=== PATIENT | female | born 1970 | race African-American/Black ===

== ENCOUNTER 2017-07-22 15:14 | Outpatient (CLI) | payer OTHER | END 2017-07-22 15:15 | disposition home or self-care (01) | LOC: BICMAMMO 15:14 | PROVIDERS: ATTEND Physician Assistant | DX: Z12.31 Encounter for screening mammogram for malignant neoplasm of breast (principal) | CPT/HCPCS: 77063; 77067 ==

== ENCOUNTER 2018-04-03 07:25 | Emergency (ER) | payer OTHER ==
[2018-04-03] MEDS ORDERED: HYDROcodone/Acetaminophen 5/325 mg Tablet ONE (07:36)
== END 2018-04-03 08:11 | disposition home or self-care (01) ==
LOC: ERS 07:25
DX: M79.672 Pain in left foot (principal)
CPT/HCPCS: 99283

== ENCOUNTER 2018-09-12 13:58 | Outpatient (CLI) | payer OTHER ==
--- NOTE | 2018-10-01 15:54 | MMO ---
Bilateral MAMMO Bilat Screen [facility]. CLINICAL HISTORY: Patient is 47 years old and is seen for screening. The patient has the following family history of breast cancer: 3 maternal aunts. The patient has no personal history of cancer. VIEWS: The views performed were: bilateral craniocaudal with tomosynthesis and bilateral mediolateral oblique with tomosynthesis. FILMS COMPARED: The present examination has been compared to prior imaging studies performed at [facility] on 04/03/2002, 06/14/2003 and 07/05/2003, and at [facility] on 01/01/2007, 12/28/2011, 04/17/2013, 06/13/2016, 06/22/2016 and 07/22/2017. MAMMOGRAM FINDINGS: The breasts are heterogeneously dense, which could obscure a lesion on mammography. There are no suspicious masses, suspicious calcifications, or new areas of architectural distortion. IMPRESSION: THERE IS NO MAMMOGRAPHIC EVIDENCE OF MALIGNANCY. A ROUTINE FOLLOW-UP MAMMOGRAM IN 1 YEAR IS RECOMMENDED. THE RESULTS OF THIS EXAM WERE SENT TO THE PATIENT. ACR BI-RADS Category 1 - Negative MAMMOGRAPHY NOTE: 1. A negative mammogram report should not delay a biopsy if a dominant of clinically suspicious mass is present. 2. Approximately 10% to 15% of breast cancers are not detected by mammography. 3. Adenosis and dense breasts may obscure an underlying neoplasm.
== END 2018-09-12 13:59 | disposition home or self-care (01) ==
LOC: BICMAMMO 13:58
PROVIDERS: ATTEND Physician Assistant
DX: Z12.31 Encounter for screening mammogram for malignant neoplasm of breast (principal); Z80.3 Family history of malignant neoplasm of breast
CPT/HCPCS: 77063; 77067

== ENCOUNTER 2020-05-16 13:39 | Outpatient (CLI) | payer BC ==
--- NOTE | 2020-05-16 15:49 | MMO ---
Bilateral MAMMO Bilat Screen [facility]. CLINICAL HISTORY: Patient is 49 years old and is seen for screening. The patient has the following family history of breast cancer: 3 maternal aunts. The patient has no personal history of cancer. VIEWS: The views performed were: bilateral craniocaudal with tomosynthesis and bilateral mediolateral oblique with tomosynthesis. FILMS COMPARED: The present examination has been compared to prior imaging studies performed at [facility] on 06/22/2016, 07/22/2017 and 09/12/2018. This study has been interpreted with the assistance of computer-aided detection. MAMMOGRAM FINDINGS: The breasts are heterogeneously dense, which could obscure a lesion on mammography. There are no suspicious masses, suspicious calcifications, or new areas of architectural distortion. IMPRESSION: THERE IS NO MAMMOGRAPHIC EVIDENCE OF MALIGNANCY. A ROUTINE FOLLOW-UP MAMMOGRAM IN 1 YEAR IS RECOMMENDED. THE RESULTS OF THIS EXAM WERE SENT TO THE PATIENT. ACR BI-RADS Category 1 - Negative MAMMOGRAPHY NOTE: 1. A negative mammogram report should not delay a biopsy if a dominant of clinically suspicious mass is present. 2. Approximately 10% to 15% of breast cancers are not detected by mammography. 3. Adenosis and dense breasts may obscure an underlying neoplasm. Reported by: SHAKA JURADO MD Electonically Signed: [id number]
== END 2020-05-16 13:40 | disposition home or self-care (01) ==
LOC: BICMAMMO 13:39
PROVIDERS: ATTEND Family Medicine
DX: Z12.31 Encounter for screening mammogram for malignant neoplasm of breast (principal); Z80.3 Family history of malignant neoplasm of breast
CPT/HCPCS: 77063; 77067

== ENCOUNTER 2021-06-12 12:49 | Outpatient (CLI) | payer BC | END 2021-06-12 12:50 | disposition home or self-care (01) | LOC: BICMAMMO 12:49 | PROVIDERS: ATTEND Family Medicine | DX: Z12.31 Encounter for screening mammogram for malignant neoplasm of breast (principal); Z80.3 Family history of malignant neoplasm of breast | CPT/HCPCS: 77063; 77067 ==

== ENCOUNTER 2022-06-29 15:17 | Outpatient (CLI) | payer BC | END 2022-06-29 15:18 | disposition home or self-care (01) | LOC: BICMAMMO 15:17 | PROVIDERS: ATTEND Physician Assistant | DX: Z12.31 Encounter for screening mammogram for malignant neoplasm of breast (principal); Z80.3 Family history of malignant neoplasm of breast | CPT/HCPCS: 77063; 77067 ==

== ENCOUNTER 2024-07-08 15:28 | Outpatient (CLI) | payer BC | END 2024-07-08 15:29 | disposition home or self-care (01) | LOC: BICMAMMO 15:28 | PROVIDERS: ATTEND Physician Assistant | DX: Z12.31 Encounter for screening mammogram for malignant neoplasm of breast (principal); Z80.3 Family history of malignant neoplasm of breast | CPT/HCPCS: 77063; 77067 ==